=== PATIENT | male | born 2000 | race Two or more races ===

== ENCOUNTER 2025-01-20 20:23 | Emergency (ER) | payer OTHER ==
[~2025-01-20] VITALS: Ht 185.4 cm; Wt 104.3 kg
[2025-01-20 20:45] VITALS: BP 139/81; O2SAT 98
== END 2025-01-20 20:50 | disposition left against medical advice (07) ==
LOC: ER 20:50
DX: T63.001A Toxic effect of unspecified snake venom, accidental (unintentional), initial encounter (principal); Z53.21 Procedure and treatment not carried out due to patient leaving prior to being seen by health care provider; Y92.89 Other specified places as the place of occurrence of the external cause
CPT/HCPCS: A4606; A4663